=== PATIENT | female | born 1945 | race Caucasian/White ===

== ENCOUNTER 2017-11-17 10:38 | Emergency (ER) | payer MEDICARE, BC ==
[~2017-11-17] VITALS: Ht 121.9 cm; Wt 4.5 kg
[2017-11-17] MEDS ORDERED: CLOP75TA15 PO (10:58)
[2017-11-17] MEDS ORDERED: PRAV10TA40 PO (10:58)
[2017-11-17] MEDS ORDERED: ESOM20CA PO (10:58)
--- NOTE | 2017-11-17 11:02 | NUR ---
PT IS IN ROOM #2B. DR JOHN EVALUATED THE PT.
--- NOTE | 2017-11-17 12:22 | NUR ---
PT WAS D/C TO HOME AFTER DR JOHN RE-EVALUATION. D/C INSTRUCTIONS GIVEN TO THE PT.
[2017-11-17 12:24] VITALS: BP 139/84
== END 2017-11-17 12:25 | disposition home or self-care (01) ==
LOC: ER 10:38
DX: S16.1XXA Strain of muscle, fascia and tendon at neck level, initial encounter (principal); S09.90XA Unspecified injury of head, initial encounter; Z79.01 Long term (current) use of anticoagulants; Z79.899 Other long term (current) drug therapy; W01.10XA Fall on same level from slipping, tripping and stumbling with subsequent striking against unspecified object, initial encounter; Y93.89 Activity, other specified; Y92.89 Other specified places as the place of occurrence of the external cause; Y99.8 Other external cause status
CPT/HCPCS: 70450; 72125; A4663

== ENCOUNTER 2019-09-06 22:11 | Emergency (ER) | payer MEDICARE, BC ==
[~2019-09-06] VITALS: Ht 162.6 cm; Wt 61.2 kg
[~2019-09-06 22:11] MED LIST: CLOP75TA15 PO; ESOM20CA PO; PRAV10TA40 PO
[2019-09-06] MEDS ORDERED: LIDOCAINE HCL 2% 20 ML VIAL TP ONE (23:00)
[2019-09-06] MEDS ORDERED: TDAP DIPH,PERTUSS,TET VAC/PF 0.5 ML DISP.SYRIN IM ONE ×2 (23:00→23:01)
[2019-09-06 23:08] VITALS: BP 138/82
--- NOTE | 2019-09-06 23:08 | NUR ---
Patient discharged to home in stable conditon. Written and verbal after care instructions given. Patient verbalizes understanding of instructions.
== END 2019-09-06 23:19 | disposition home or self-care (01) ==
LOC: ER 22:17
DX: S61.012A Laceration without foreign body of left thumb without damage to nail, initial encounter (principal); Z79.01 Long term (current) use of anticoagulants; Z79.899 Other long term (current) drug therapy; W26.0XXA Contact with knife, initial encounter; Y93.89 Activity, other specified; Y92.89 Other specified places as the place of occurrence of the external cause; Y99.8 Other external cause status
CPT/HCPCS: 90715; A4217; A4663